=== PATIENT | male | born 1995 | race Caucasian/White ===

== ENCOUNTER → 2017-01-19 | Outpatient (CLI) | payer SELFPAY ==
[~2017-01-19] MED LIST: ACET-1256 PO; GLC/500 PO; LEVO50TA6 PO; LEVO75TA PO
[2017-01-19 12:31] LABS: ESTIMATED AVERAGE GLUCOSE 103 mg/dl; HA1C FLAG Normal (Normal)
[2017-01-19 13:09] LABS: ALB/GLOB RATIO 1.2 (0.9-2); ALKALINE PHOSPHATASE 54 U/L (45-117); ALT/SGPT 26 U/L (12-78); AST/SGOT 15 U/L (15-37); BLOOD UREA NITROGEN 13 mg/dl (7-18); BUN/CREATININE RATIO 11.4 (10-20); CALCIUM 8.7 mg/dl (8.5-10.1); CARBON DIOXIDE 24 mmol/L (21-32); CHLORIDE 111 mmol/L (98-107); CHOLESTEROL 143 mg/dl (0-200); GLUCOSE 100 mg/dl (70-99); HDL CHOLESTEROL 36 mg/dl; POTASSIUM 3.9 mmol/L (3.5-5.1); SODIUM 144 mmol/L (136-145)
[2017-01-19 13:20] LABS: LDL CHOLESTEROL CALCULATED 90 mg/dl; TRIGLYCERIDES 87 mg/dl (0-150); VERY LOW DENSITY LIPOPROT CALC 17 mg/dl
== END | disposition home or self-care (01) ==
LOC: C.LABBFT 10:54
PROVIDERS: ATTEND Physician Assistant Medical
DX: E03.9 Hypothyroidism, unspecified (principal); E16.1 Other hypoglycemia

== ENCOUNTER → 2017-03-23 | Outpatient (CLI) | payer SELFPAY ==
[2017-03-23 12:21] LABS: HEMATOCRIT 42.9 % (42-52); MEAN CELL VOLUME 87.9 fL (80-100); MEAN CORPUSCULAR HEMOGLOBIN 30.1 pg (25-34); MEAN CORPUSCULAR HGB CONC 34.3 g/dl (32-36); MEAN PLATELET VOLUME 11.1 fL (7.4-10.4); PLATELET COUNT 209 K/uL (130-400); RED BLOOD COUNT 4.88 M/uL (4.7-6.1); WHITE BLOOD COUNT 7.05 K/uL (4.8-10.8)
[2017-03-23 12:55] LABS: BLOOD UREA NITROGEN 12 mg/dl (7-18); BUN/CREATININE RATIO 11.3 (10-20); CALCIUM 9.1 mg/dl (8.5-10.1); CARBON DIOXIDE 27 mmol/L (21-32); CHLORIDE 110 mmol/L (98-107); GLUCOSE 108 mg/dl (70-99); POTASSIUM 3.8 mmol/L (3.5-5.1); SODIUM 142 mmol/L (136-145)
== END | disposition home or self-care (01) ==
LOC: C.LABBFT 10:52
PROVIDERS: ATTEND Physician Assistant Medical
DX: K92.1 Melena (principal)

== ENCOUNTER → 2017-05-06 | Day surgery (SDC) | payer OTHER ==
[2017-04-28 13:08] VITALS: Ht 175.3 cm; Wt 129.6 kg
[~2017-05-06] VITALS: Ht 175.3 cm; Wt 129.6 kg
[~2017-05-06] MED LIST changes: +FENTANYL CITRATE INJ 50 MCG/1 ML 2 ML VIAL ONE; -GLC/500 PO; +KETAMINE HCL INJ 50 MG/ML 10 ML VIAL ONE; -LEVO50TA6 PO; +LIDOCAINE HCL 2% 2 ML VIAL (20MG/ML) ONE; +MIDAZOLAM HCL 1 MG/ML 2ML VIAL ONE; +PROPOFOL IV EMULSION 10 MG/ML 20 ML VIAL IV ONE; +SODIUM CHLORIDE 0.9% 500ML 500 ML IV ONE
--- NOTE | 2017-05-06 09:16 | Endo History and Physical ---
History & Physical Date of Service: May 06, 2017. Chief Complaint: melana Referring Physician: Dr. Curran History of Present Illness melena and epigastric pain Past Surgical History Hx Cardiac Surgery: No Hx Internal Defibrillator: No Hx Pacemaker: No Hx Abdominal Surgery: No Hx of Implantable Prosthesis: No Hx Post-Op Nausea and Vomiting: No Hx Cancer Surgery: No Hx Thoracic Surgery: No Hx Orthopedic: Yes (RT ARM SURGERY) Hx Urinary Tract Surgery: No Family History Polyp Social History Smoking Status: Current Every Day Smoker Hx Substance Use: No Hx Alcohol Use: No Allergies Coded Allergies: Tetanus Toxoid (Verified Allergy, Unknown, hives, 04/28/17) Current Medications Reported Home Medications Medications Dose Route/Sig Max Daily Dose Days Date Category Synthroid (Levothyroxine Sodium) 75 Mcg Tab 75 Mcg PO QAM 04/28/17 Reported Tylenol (Acetaminophen) 500 Mg Tab 2 Tab PO Q6 PRN 03/18/16 Reported Vital Signs Weight (Kilograms): 129.55 Height (Feet): 5 Height (Inches): 9 Date Time Temp Pulse Resp B/P (MAP) Pulse Ox O2 Delivery O2 Flow Rate FiO2 05/06/17 08:48 37.1 72 20 140/86 (104) 99 Room Air Physical Exam General Appearance: WD/WN, no apparent distress Assessment and Plan EGD today
--- NOTE | 2017-05-06 09:37 | GI REPORT ---
Procedure Date: 05/06/2017 9:24 AM Procedure: Upper GI endoscopy Indications: Epigastric abdominal pain, Melena Medicines: Propofol per Anesthesia Complications: No immediate complications. Estimated blood loss: None. Estimated Blood Loss: Estimated blood loss: none. Procedure: Pre-Anesthesia Assessment: - Prior to the procedure, a History and Physical was performed, and patient medications, allergies and sensitivities were reviewed. The patient's tolerance of previous anesthesia was reviewed. - The risks and benefits of the procedure and the sedation options and risks were discussed with the patient. All questions were answered and informed consent was obtained. - Patient identification and proposed procedure were verified prior to the procedure by the physician and the nurse. The procedure was verified in the pre-procedure area in the procedure room. - Mental Status Examination: alert and oriented. Airway Examination: normal oropharyngeal airway and neck mobility. Respiratory Examination: clear to auscultation. CV Examination: normal. Abdominal Examination: bowel sounds present, abdomen soft and non-tender, no masses or organomegaly noted. - ASA Grade Assessment: III - A patient with severe systemic disease. After obtaining informed consent, the endoscope was passed under direct vision. Throughout the procedure, the patient's blood pressure, pulse, and oxygen saturations were monitored continuously. The Scope was introduced through the mouth, and advanced to the second part of duodenum. The upper GI endoscopy was accomplished without difficulty. The patient tolerated the procedure well. Findings: The esophagus was normal. Mild inflammation characterized by congestion (edema) and erythema was found in the gastric antrum. The examined duodenum was normal. Impression: - Normal esophagus. - Gastritis. Small amount of retained food. No ulcers. - Normal examined duodenum. - No specimens collected. Recommendation: - Follow an antireflux regimen. - Use a proton pump inhibitor PO daily. ' - Consider gastric emptying scan to evaluate for gastroparesis given the retained food. - Return to primary care physician as previously scheduled. - Discharge patient to home. Mariangel Mercedes D.O. Mariangel Mercedes DO 05/06/2017 9:36:46 AM This report has been signed electronically. Note Initiated On: 05/06/2017 9:24 AM I attest to the content of the Intraoperative Record and orders documented therein, exceptions below
--- NOTE | 2017-05-06 10:03 | Discharge Instructions ---
Endoscopy Patient Instructions Date / Procedure(s) Performed May 06, 2017. EGD Allergy Information Coded Allergies: Tetanus Toxoid (Verified Allergy, Unknown, hives, 04/28/17) Discharge Date / Findings May 06, 2017. gastritis Medication Instructions Restart Stopped Medication(s): OK to resume home medications Provider Instructions Activity Restrictions - No exercising or heavy lifting for 24 hours. - Do not drink alcohol the day of the procedure. - Do not drive a car or operate machinery until the day after the procedure. - Do not make any important decisions or sign important papers in 24 hours after the procedure. Following Day: - Return to full activity which may include returning to work/school. Diet STOP DRINKING SODA!!!!! Start your diet with liquids and light foods (jello, soup, juice, toast). Then eat your usual diet if not nauseated. Treatment For Common After Affects For mild abdominal pain, bloating, or excessive gas: - Rest - Eat lightly - Lie on right side Take OTC omeprazole 20 mg once a day Follow-Up Information Follow-up with Dr. Curran as scheduled Anesthesia Information What You Should Know You have had a procedure that required some medicine to reduce anxiety and discomfort. This treatment is called moderate sedation. After receiving the treatment, you may be sleepy, but you will be able to breathe on your own. The effects of the treatment may last for several hours. Follow these instructions along with Activity/Diet recommendations noted above: * Do NOT do anything where dizziness or clumsiness would be dangerous. * Rest quietly at home today, then you can be up and about tomorrow. * Have a responsible person stay with you the rest of today. * You may have had an I.V. today. If so, you may take the dressing off later today. Recommendations Call your doctor if: * Trouble breathing * Continuous vomiting for more than 24 hours * Temperature above 101 degrees * Severe abdominal pain or bloating * Pain not relieved by pain medicine ordered * There is increased drainage or redness from any incision * A large amount of rectal bleeding greater than 2-3 tablespoons. (If you had a polyp/s removed or have hemorrhoids, a small amount of blood - from the rectum is to be expected.) * You have any unanswered questions or concerns. IN THE EVENT OF A SERIOUS EMERGENCY, GO TO THE NEAREST EMERGENCY ROOM Your discharge instructions were prepared by provider Mariangel Mercedes. Patient Instructions Signature Page Addi Ruth Patient (or Guardian) Signature/Date: I have read and understand the instructions given to me by my caregivers. Caregiver/RN/Doctor Signature/Date: The above-named patient and/or guardian has received patient instructions on this date. + Original Patient Signature Page (only) stays with chart. Please make copy for patient.
[2017-05-06 10:19] VITALS: BP 155/63; PULSE 63; O2SAT 100
--- NOTE | 2017-05-06 10:44 | Anesthesiology Progress Note ---
Anesthesia Post Op Note Date & Time May 06, 2017 at 10:44 Vital Signs Pain Intensity: 0 Vital Signs Past 12 Hours Date Time Temp Pulse Resp B/P (MAP) Pulse Ox O2 Delivery O2 Flow Rate FiO2 05/06/17 10:19 63 12 155/63 (93) 100 Room Air 05/06/17 09:51 83 18 145/84 (104) 100 Room Air 05/06/17 09:35 83 12 113/63 (80) 100 Room Air 05/06/17 08:48 37.1 72 20 140/86 (104) 99 Room Air Notes Mental Status: alert / awake / arousable, participated in evaluation Pt Amnestic to Procedure: Yes Nausea / Vomiting: adequately controlled Pain: adequately controlled Airway Patency, RR, SpO2: stable & adequate BP & HR: stable & adequate Hydration State: stable & adequate Anesthetic Complications: no major complications apparent
== END | disposition home or self-care (01) ==
LOC: C.GI 08:25
PROVIDERS: ATTEND Internal Medicine
DX: K29.70 Gastritis, unspecified, without bleeding (principal); F17.200 Nicotine dependence, unspecified, uncomplicated; Z83.71 Family history of colonic polyps; Z79.899 Other long term (current) drug therapy

== ENCOUNTER → 2017-11-02 | Outpatient (CLI) | payer BC ==
[~2017-11-02] MED LIST changes: -FENTANYL CITRATE INJ 50 MCG/1 ML 2 ML VIAL ONE; -KETAMINE HCL INJ 50 MG/ML 10 ML VIAL ONE; -LIDOCAINE HCL 2% 2 ML VIAL (20MG/ML) ONE; -MIDAZOLAM HCL 1 MG/ML 2ML VIAL ONE; -PROPOFOL IV EMULSION 10 MG/ML 20 ML VIAL IV ONE; -SODIUM CHLORIDE 0.9% 500ML 500 ML IV ONE
[2017-11-03 06:33] LABS: HEMOGLOBIN A1C 5.3 % (4.5-5.6)
== END | disposition home or self-care (01) ==
LOC: C.LABBFT 13:58
PROVIDERS: ATTEND Internal Medicine
DX: E03.9 Hypothyroidism, unspecified (principal); E66.01 Morbid (severe) obesity due to excess calories

== ENCOUNTER → 2017-11-23 | Outpatient (CLI) | payer BC ==
--- NOTE | 2017-11-23 08:10 | DIAGNOSTIC IMAGING REPORT ---
ULTRASOUND OF THE THYROID GLAND CLINICAL HISTORY: Gastroparesis. COMPARISON STUDY: No priors. TECHNIQUE: Real-time, grayscale, and color flow sonography of the thyroid gland is performed utilizing a high-frequency linear transducer. Images are reviewed in the transverse and longitudinal planes. FINDINGS: Right lobe: The right lobe of the thyroid gland is normal in size and heterogeneous in echotexture, measuring 5.9 x 2.2 x 2.1 cm. No discrete lesion is identified. No hyperemia is seen on color imaging. Left lobe: The left lobe of the thyroid gland is normal in size and heterogeneous in echotexture, measuring 5.7 x 2.5 x 1.7 cm. No discrete lesion is identified. No hyperemia is seen on color imaging. Isthmus: The thyroid isthmus is heterogeneous and measures 0.3 cm in AP diameter. IMPRESSION: 1. The thyroid gland is normal in size and heterogeneous in echotexture. The appearance suggests the sequelae of thyroiditis. Correlation with serum thyroid function studies will be required. 2. There is no glandular hyperemia on color imaging. 3. No discrete thyroid lesion is identified. Electronically signed by: Davy Fernandez M.D. 11/23/2017 8:08 AM Dictated Date/Time: 11/23/2017 8:07 AM
--- NOTE | 2017-11-23 12:25 | DIAGNOSTIC IMAGING REPORT ---
GASTRIC EMPTYING HISTORY: Upper abdominal pain GASTROPARESIS COMPARISON: None. TECHNIQUE: Following the oral administration of 1 mCi of technetium 99m sulfur colloid in egg sandwich and 8 ounces of water, static abdominal images are obtained anteriorly and posteriorly at 0 minutes, 1 hour, 2 hour, and 4 hour time intervals. Gastric emptying was calculated utilizing the geometric mean method. FINDINGS: There is approximately 89 % activity remaining at the 1 hour time interval (normal is less than 90%), 48 % remaining at the 2 hour time interval (normal is less than 60%), and 20 % activity remaining at the 4 hour time interval (normal is less than 10%). IMPRESSION: Findings consistent with mild gastric emptying delay The above report was generated using voice recognition software. It may contain grammatical, syntax or spelling errors. Electronically signed by: Geovanni Oliva M.D. 11/23/2017 12:24 PM Dictated Date/Time: 11/23/2017 12:23 PM
== END | disposition home or self-care (01) ==
LOC: C.ULTR 07:40
PROVIDERS: ATTEND Internal Medicine
DX: R94.6 Abnormal results of thyroid function studies (principal); K31.84 Gastroparesis

== ENCOUNTER → 2018-03-07 | Outpatient (CLI) | payer BC | END | disposition home or self-care (01) | LOC: C.LABBFT 15:04 | PROVIDERS: ATTEND Physician Assistant Medical | DX: E03.9 Hypothyroidism, unspecified (principal) ==